=== PATIENT | female | born 1965 | race Caucasian/White ===

== ENCOUNTER 2020-08-01 09:38 | Observation (INO) ==
[2020-08-01] MEDS ORDERED: Naloxone 0.4 MG/ML INJ IVP PRN (11:39)
[2020-08-01] MEDS ORDERED: *HR* LORazepam 1 MG TABLET PO ONE (12:13)
[2020-08-01] MEDS ORDERED: *HR* Dextrose 50 % in Water (Vial) 50 ML VIAL IVP PRN (12:33)
[2020-08-01] MEDS ORDERED: Dextrose Gel 15 GM/37.5 ML TUBE PO PRN ×2 (12:33)
[2020-08-01] MEDS ORDERED: D5% in Water 1,000 ML IVC PRN (12:33)
[2020-08-01] MEDS ORDERED: 0.9 % Sodium Chloride 500 ML IVC ONE (14:27)
[2020-08-01] MEDS ORDERED: 0.9 % Sodium Chloride 500 ML ONE (14:29)
[2020-08-01] MEDS: Ringers Solution, Lactated 1,000 ML IVC SCH ×2 (14:57→19:45)
[2020-08-01] MEDS: Insulin LISPRO 300 UNITS/3 ML VIAL SQ SCH ×2 (17:06→19:46)
[2020-08-01 23:35] LABS: Estimated Average Glucose 177 mg/dl
[2020-08-02 05:10] LABS: Basophils % 0.4 %; Eosinophils # 0.1 K/mcL (0.0-0.6); Eosinophils % 1.1 %; Hematocrit 41.3 % (35.3-44.9); Hemoglobin 12.8 g/dL (11.5-15.4); Immature Granulocytes % 0.3 % (0-4); Lymphocytes # 2.7 K/mcL (0.6-4.6); Lymphocytes % 28.3 %; Mean Corpuscular Hemoglobin 27.9 pg (28.0-33.3); Mean Corpuscular Volume 90.2 fL (83.0-100.0); Mean Platelet Volume 10.1 fL (9.4-12.4); Monocytes # 0.6 K/mcL (0.0-1.3); Monocytes % 6.2 %; Neutrophils # 6.1 K/mcL (1.6-8.9); Platelet Count 327 K/mcL (140-400); Red Blood Count 4.58 M/mcL (3.82-4.97); Red Cell Distribution Width 14.7 % (11.5-14.5); Segmented Neutrophils % 63.7 %; White Blood Count 9.6 K/mcL (4.3-11.1)
[2020-08-02 05:30] LABS: BUN/Creatinine Ratio 27 (6-26); Blood Urea Nitrogen 26 mg/dL (6-20); Carbon Dioxide 28 mEq/L (23-29); Chloride 105 mEq/L (98-107); Glucose 122 mg/dL (70-105); Osmolality,Calculated 298 (280-300); Potassium 4.5 mEq/L (3.5-5.1); Sodium 141 mEq/L (136-145); eGFR For African Americans > 60 (> 60); eGFR For Non-African Americans > 60 (> 60)
[2020-08-02] MEDS: Insulin LISPRO 300 UNITS/3 ML VIAL SQ SCH ×4 (08:14→22:17)
[2020-08-02] MEDS: cefTRIAXone 1,000 MG in Water for inj. (sterile) 10 ML IVP SCH (08:15)
[2020-08-02] MEDS ORDERED: lamoTRIgine 100 MG TABLET PO SCH (18:00)
[2020-08-02] MEDS ORDERED: risperiDONE 1 MG TABLET PO SCH (21:00)
[2020-08-02] MEDS: Gabapentin 300 MG CAPSULE PO SCH (21:02)
[2020-08-03] MEDS ORDERED: *HR* LORazepam 0.5 MG TABLET PO ONE (00:06)
[2020-08-03 03:50] LABS: Basophils % 0.3 %; Eosinophils # 0.2 K/mcL (0.0-0.6); Eosinophils % 1.8 %; Hemoglobin 12.9 g/dL (11.5-15.4); Immature Granulocytes % 0.2 % (0-4); Lymphocytes # 2.8 K/mcL (0.6-4.6); Lymphocytes % 32.1 %; Mean Corpuscular HGB Conc 31.5 g/dL (31.6-35.5); Mean Corpuscular Hemoglobin 28.2 pg (28.0-33.3); Mean Corpuscular Volume 89.7 fL (83.0-100.0); Mean Platelet Volume 10.1 fL (9.4-12.4); Monocytes # 0.6 K/mcL (0.0-1.3); Monocytes % 7.2 %; Neutrophils # 5.1 K/mcL (1.6-8.9); Platelet Count 341 K/mcL (140-400); Red Blood Count 4.57 M/mcL (3.82-4.97); Red Cell Distribution Width 14.4 % (11.5-14.5); Segmented Neutrophils % 58.4 %; White Blood Count 8.7 K/mcL (4.3-11.1)
[2020-08-03 04:06] LABS: BUN/Creatinine Ratio 19 (6-26); Blood Urea Nitrogen 15 mg/dL (6-20); Calcium 9.8 mg/dL (8.6-10.3); Carbon Dioxide 33 mEq/L (23-29); Chloride 99 mEq/L (98-107); Glucose 113 mg/dL (70-105); Magnesium 1.9 mg/dL (1.6-2.6); Osmolality,Calculated 294 (280-300); Potassium 3.9 mEq/L (3.5-5.1); Sodium 141 mEq/L (136-145); eGFR For African Americans > 60 (> 60); eGFR For Non-African Americans > 60 (> 60)
[2020-08-03] MEDS ORDERED: DEXTROAMPHETAMINE PO SCH (09:00)
[2020-08-03] MEDS ORDERED: [UNRECOGNIZED DRUG - OTHER] PO SCH (09:00)
[2020-08-03] MEDS ORDERED: AMPHETAMINE PO SCH (09:00)
[2020-08-03] MEDS ORDERED: lamoTRIgine 100 MG TABLET PO SCH (09:00)
[2020-08-03] MEDS ORDERED: Aspirin Enteric Coated 81 MG Tablet PO SCH (09:00)
[2020-08-03] MEDS: Insulin LISPRO 300 UNITS/3 ML VIAL SQ SCH ×2 (09:19→12:28)
[2020-08-03] MEDS: cefTRIAXone 1,000 MG in Water for inj. (sterile) 10 ML IVP SCH (09:25)
[2020-08-03] MEDS: Gabapentin 300 MG CAPSULE PO SCH (09:25)
[2020-08-03] MEDS ORDERED: NON-FORMULARY MEDICATION 1 EACH EACH (Dextroamphetamine/Amphetamine [Adderall 20 Mg Tablet PO SCH (12:00)
[2020-08-03 12:27] VITALS: BP 142/85
== END 2020-08-03 15:37 | disposition home or self-care (01) ==
LOC: 2NNU → SUATTDRO 11:11 → 2ANU 08-03 06:42
PROVIDERS: ADMIT Internal Medicine; ATTEND Internal Medicine

== ENCOUNTER 2021-07-17 11:54 | Observation (INO) ==
[2021-07-17] MEDS ORDERED: Ipratropium/Albuterol Neb 3 ML IH ONE (12:02)
[2021-07-17] MEDS ORDERED: methylPREDNISolone 125 MG/2 ML VIAL IVP ONE (12:02)
[2021-07-17 12:30] LABS: Basophils % 0.4 %; Eosinophils # 0.1 K/mcL (0.0-0.6); Eosinophils % 0.7 %; Hematocrit 43.5 % (35.3-44.9); Hemoglobin 14.3 g/dL (11.5-15.4); Immature Granulocytes % 0.7 % (0-4); Lymphocytes # 1.3 K/mcL (0.6-4.6); Lymphocytes % 13.9 %; Mean Corpuscular HGB Conc 32.9 g/dL (31.6-35.5); Mean Corpuscular Hemoglobin 29.6 pg (28.0-33.3); Mean Corpuscular Volume 90.1 fL (83.0-100.0); Mean Platelet Volume 9.5 fL (9.4-12.4); Monocytes # 0.5 K/mcL (0.0-1.3); Monocytes % 5.2 %; Neutrophils # 7.5 K/mcL (1.6-8.9); Platelet Count 274 K/mcL (140-400); Red Blood Count 4.83 M/mcL (3.82-4.97); Red Cell Distribution Width 13.1 % (11.5-14.5); Segmented Neutrophils % 79.1 %; White Blood Count 9.5 K/mcL (4.3-11.1)
[2021-07-17 13:12] LABS: BUN/Creatinine Ratio 11 (6-26); Blood Urea Nitrogen 10 mg/dL (6-20); Calcium 9.2 mg/dL (8.6-10.3); Chloride 100 mEq/L (98-107); Glucose 195 mg/dL (70-105); Osmolality,Calculated 294 (280-300); Sodium 140 mEq/L (136-145); Troponin I < 0.03 ng/mL (< 0.04); eGFR For African Americans > 60 (> 60); eGFR For Non-African Americans > 60 (> 60)
[2021-07-17] MEDS ORDERED: Isovue-370 500 ML BOTTLE IVP ONE (13:21)
[2021-07-17 13:41] LABS: Carbon Dioxide 27 mEq/L (23-29)
[2021-07-17 15:14] LABS: Amorphous Sediment,Urine Few per hpf (None-Few); Bilirubin,Urine Negative (Negative); Blood,Urine Trace (Negative); Clarity,Urine Ex.Turbid (Clear); Color,Urine Yellow (Yellow); Glucose,Urine (UA) Normal (Normal); Ketones,Urine Trace mg/dL (Negative); Leukocyte Esterase,Urine Negative (Negative); Mucus,Urine Few per lpf (None-Few); Nitrite,Urine Negative (Negative); PH,Urine 5.5 pH Units (5.0-8.0); Protein,Urine 100 mg/dL (Neg-Trace); Specific Gravity,Urine > 1.030 (1.010-1.025); Squamous Epithelial Cell,Urine Few per hpf (None-Few); Urobilinogen,Urine Normal (Normal); WBC,Urine 0-3 per hpf (0-3)
[2021-07-17 15:59] LABS: Adenovirus Not Detected (Not Detect); Bordetella Pertussis Not Detected (Not Detect); Chlamydophila pneumoniae Not Detected (Not Detect); Coronavirus 229E Not Detected (Not Detect); Coronavirus HKU1 Not Detected (Not Detect); Coronavirus NL63 Not Detected (Not Detect); Coronavirus OC43 Not Detected (Not Detect); Human Metapneumovirus Not Detected (Not Detect); Human Rhinovirus/Enterovirus Not Detected (Not Detect); Influenza A Subtype 2009 H1 Not Detected (Not Detect); Influenza B Not Detected (Not Detect); Mycoplasma pneumoniae Not Detected (Not Detect); Parainfluenza Virus 1 Not Detected (Not Detect); Parainfluenza Virus 2 Not Detected (Not Detect); Parainfluenza Virus 3 DETECTED (Not Detect); Parainfluenza Virus 4 Not Detected (Not Detect); Respiratory Syncytial Virus Not Detected (Not Detect); SARS-CoV-2 Not Detected (Not Detect)
[2021-07-17] MEDS ORDERED: Baclofen 10 MG TABLET PO PRN (17:38)
[2021-07-17] MEDS ORDERED: Ondansetron ODT 4 MG TAB.RAPDIS SL PRN (17:42)
[2021-07-17] MEDS ORDERED: Naloxone 0.4 MG/ML INJ IVP PRN (17:42)
[2021-07-17] MEDS ORDERED: Melatonin 3 MG TABLET PO PRN (17:42)
[2021-07-17] MEDS ORDERED: Perflutren Lipid Microsphere 1.3 ML in 0.9 % Sodium Chloride 8.7 ML IVP PRN (17:57)
[2021-07-17] MEDS ORDERED: D5% in Water 1,000 ML IVC PRN (18:00)
[2021-07-17] MEDS ORDERED: Dextrose Gel 15 GM/37.5 ML TUBE PO PRN ×2 (18:00)
[2021-07-17] MEDS ORDERED: *HR* Dextrose 50 % in Water (Vial) 50 ML VIAL IVP PRN (18:00)
[2021-07-17] MEDS ORDERED: MethylPREDNISolone 40 MG/ML VIAL IVP SCH (18:00)
[2021-07-17] MEDS: Ipratropium/Albuterol Neb 3 ML IH SCH ×2 (18:30→22:23)
[2021-07-17] MEDS: Azithromycin 250 MG TABLET PO SCH (18:49)
[2021-07-17] MEDS: *HR* HYDROcodone/Acet 10/325 mg TABLET PO PRN (18:50)
[2021-07-17] MEDS: lamoTRIgine 100 MG TABLET PO SCH (18:50)
[2021-07-17] MEDS: Insulin LISPRO 300 UNITS/3 ML VIAL SUBQ SCH (18:51)
[2021-07-17 19:36] LABS: Estimated Average Glucose 203 mg/dl; Hemoglobin A1C 8.7 %
[2021-07-17] MEDS: *HR* Heparin 5,000 UNIT/ML VIAL SQ SCH (21:00)
[2021-07-17] MEDS: Pregabalin 50 MG CAPSULE PO SCH (21:00)
[2021-07-17] MEDS: Fluticasone Propionate Nasal 50 MCG/SPRAY BOTTLE NS SCH (21:07)
[2021-07-17] MEDS: Budesonide/Formoterol 160/4.5 1 PUFF INH IH SCH (22:23)
[2021-07-18] MEDS: Ipratropium/Albuterol Neb 3 ML IH SCH ×4 (03:51→21:58)
[2021-07-18] MEDS: *HR* HYDROcodone/Acet 10/325 mg TABLET PO PRN ×3 (05:05→17:58)
[2021-07-18] MEDS: *HR* Heparin 5,000 UNIT/ML VIAL SQ SCH ×3 (05:06→21:10)
[2021-07-18 06:25] LABS: BUN/Creatinine Ratio 17 (6-26); Blood Urea Nitrogen 13 mg/dL (6-20); Calcium 8.6 mg/dL (8.6-10.3); Carbon Dioxide 28 mEq/L (23-29); Chloride 101 mEq/L (98-107); Glucose 255 mg/dL (70-105); Magnesium 1.8 mg/dL (1.6-2.6); Osmolality,Calculated 297 (280-300); Phosphorous 3.4 mg/dL (2.7-4.5); Potassium 4.1 mEq/L (3.5-5.1); Sodium 139 mEq/L (136-145); eGFR For African Americans > 60 (> 60); eGFR For Non-African Americans > 60 (> 60)
[2021-07-18 06:57] LABS: Basophils % 0.5 %; Hematocrit 40.1 % (35.3-44.9); Hemoglobin 13.2 g/dL (11.5-15.4); Immature Granulocytes % 2.6 % (0-4); Lymphocytes # 1.5 K/mcL (0.6-4.6); Lymphocytes % 19.4 %; Mean Corpuscular HGB Conc 32.9 g/dL (31.6-35.5); Mean Corpuscular Hemoglobin 29.5 pg (28.0-33.3); Mean Corpuscular Volume 89.7 fL (83.0-100.0); Monocytes # 0.3 K/mcL (0.0-1.3); Monocytes % 3.6 %; Neutrophils # 5.8 K/mcL (1.6-8.9); Platelet Count 270 K/mcL (140-400); Red Blood Count 4.47 M/mcL (3.82-4.97); Red Cell Distribution Width 13.1 % (11.5-14.5); Segmented Neutrophils % 73.9 %; White Blood Count 7.8 K/mcL (4.3-11.1)
[2021-07-18] MEDS ORDERED: (Cariprazine Hcl [Vraylar] 3 MG Capsule) PO SCH (09:00)
[2021-07-18] MEDS: Insulin LISPRO 300 UNITS/3 ML VIAL SUBQ SCH ×3 (09:41→17:52)
[2021-07-18] MEDS: Aspirin Enteric Coated 81 MG Tablet PO SCH (09:43)
[2021-07-18] MEDS: Fluticasone Propionate Nasal 50 MCG/SPRAY BOTTLE NS SCH (09:43)
[2021-07-18] MEDS: predniSONE 20 MG TABLET PO SCH (09:43)
[2021-07-18] MEDS: lisinopriL 10 MG TABLET PO SCH (09:43)
[2021-07-18] MEDS: Azithromycin 250 MG TABLET PO SCH (09:43)
[2021-07-18] MEDS: Pregabalin 50 MG CAPSULE PO SCH ×3 (09:44→21:10)
[2021-07-18] MEDS: lamoTRIgine 100 MG TABLET PO SCH ×2 (09:44→17:51)
[2021-07-18] MEDS: Budesonide/Formoterol 160/4.5 1 PUFF INH IH SCH ×2 (10:31→21:58)
[2021-07-18] MEDS: (Cariprazine Hcl [Vraylar] 3 MG Capsule) PO SCH (14:58)
[2021-07-19] MEDS: *HR* HYDROcodone/Acet 10/325 mg TABLET PO PRN ×2 (00:57→10:36)
[2021-07-19 03:36] LABS: BUN/Creatinine Ratio 24 (6-26); Blood Urea Nitrogen 21 mg/dL (6-20); Calcium 8.9 mg/dL (8.6-10.3); Carbon Dioxide 31 mEq/L (23-29); Chloride 101 mEq/L (98-107); Glucose 237 mg/dL (70-105); Osmolality,Calculated 301 (280-300); Potassium 3.7 mEq/L (3.5-5.1); Sodium 140 mEq/L (136-145); eGFR For African Americans > 60 (> 60); eGFR For Non-African Americans > 60 (> 60)
[2021-07-19] MEDS: Ipratropium/Albuterol Neb 3 ML IH SCH ×2 (03:38→10:17)
[2021-07-19] MEDS: *HR* Heparin 5,000 UNIT/ML VIAL SQ SCH (05:15)
[2021-07-19] MEDS: Insulin LISPRO 300 UNITS/3 ML VIAL SUBQ SCH ×2 (08:37→11:52)
[2021-07-19] MEDS: Pregabalin 50 MG CAPSULE PO SCH (08:38)
[2021-07-19] MEDS: Azithromycin 250 MG TABLET PO SCH (08:41)
[2021-07-19] MEDS: lamoTRIgine 100 MG TABLET PO SCH (08:42)
[2021-07-19] MEDS: predniSONE 20 MG TABLET PO SCH (08:42)
[2021-07-19] MEDS: Aspirin Enteric Coated 81 MG Tablet PO SCH (08:42)
[2021-07-19] MEDS: lisinopriL 10 MG TABLET PO SCH (08:42)
[2021-07-19] MEDS: (Cariprazine Hcl [Vraylar] 3 MG Capsule) PO SCH (08:43)
[2021-07-19] MEDS: Fluticasone Propionate Nasal 50 MCG/SPRAY BOTTLE NS SCH (08:50)
[2021-07-19] MEDS: Budesonide/Formoterol 160/4.5 1 PUFF INH IH SCH (10:17)
[2021-07-19 10:32] VITALS: BP 124/73; PULSE 76; TEMP 97.6; O2SAT 97
== END 2021-07-19 14:43 | disposition home or self-care (01) ==
LOC: EMEROOARM 11:54 → 3ANU 11:54 → SUATTDRO 16:47 → 3ANU 17:57
PROVIDERS: ADMIT Pharmacist; ATTEND Internal Medicine